=== PATIENT | male | born 1980 | race Caucasian/White ===

== ENCOUNTER → 2016-04-12 | Outpatient (REF) | payer BC | LOC: M SMT 09:45 | PROVIDERS: ATTEND Urology | DX: Z30.2 Encounter for sterilization (principal) ==

== ENCOUNTER → 2016-06-07 | Outpatient (REF) | payer BC ==
[2016-06-07 14:23] LABS: IMMMOTILE SPERM CENTRIFUGED ABSENT (ABSENT); IMMOTILE SPERM ABSENT (ABSENT); MOTILE SPERM ABSENT (ABSENT); MOTILE SPERM CENTRIFUGED ABSENT (ABSENT)
== END ==
LOC: M SMT 14:14
PROVIDERS: ATTEND Urology
DX: Z30.2 Encounter for sterilization (principal)

== ENCOUNTER → 2023-05-19 | Outpatient (REF) | payer BC, OTHER ==
[2023-05-19 18:15] LABS: CHOLESTEROL RISK RATIO 4.71 (<5); HDL CHOLESTEROL 36.5 MG/DL (>40); LDL CHOLESTEROL 123.1 MG/DL (<100); NON-HDL-C 135.5 MG/DL
== END ==
LOC: M LAB REF 16:32
PROVIDERS: ATTEND Physician Assistant
DX: I10 Essential (primary) hypertension (principal)